=== PATIENT | male | born 1980 | race Caucasian/White ===

== ENCOUNTER → 2016-08-28 | Outpatient (CLI) | payer BC ==
[2016-08-28 14:53] LABS: CHOLESTEROL/HDL RATIO 3.3
[2016-09-02 06:31] LABS: ALK PHOS ISO-INTESTINE 2 % (1-24); ALK PHOS ISO-LIVER 65 % (25-69); ALK PHOS ISO-PLACENTAL 0 % (<=0); ALK PHOS MACROHEPATIC 0 % (<=0); ALP (ALK P'TASE) 85 U/L (40-115)
== END | disposition home or self-care (01) ==
LOC: C.LABBC 09:52
PROVIDERS: ATTEND Family Medicine
DX: R74.8 Abnormal levels of other serum enzymes (principal); Z13.220 Encounter for screening for lipoid disorders